=== PATIENT | male | born 1980 | race Caucasian/White ===

== ENCOUNTER 2016-06-06 10:58 | Emergency (ER) | payer MEDICAID ==
[~2016-06-06] VITALS: Ht 162.6 cm; Wt 64.0 kg
[~2016-06-06 10:58] MED LIST: KEPRA
[2016-06-06] MEDS ORDERED: IBUPROFEN 800MG TABLET PO ONE (13:45)
[2016-06-06 13:53] VITALS: BP 104/61
== END 2016-06-06 14:46 | disposition home or self-care (01) ==
LOC: ER 11:18
DX: S09.91XA Unspecified injury of ear, initial encounter (principal); Z87.820 Personal history of traumatic brain injury; X58.XXXA Exposure to other specified factors, initial encounter; Y92.018 Other place in single-family (private) house as the place of occurrence of the external cause
CPT/HCPCS: 99283